=== PATIENT | female | born 1980 | race Caucasian/White ===

== ENCOUNTER 2017-01-16 15:48 | Observation (INO) | payer BC ==
[~2017-01-16] VITALS: Ht 170.2 cm; Wt 56.8 kg
[2017-01-16 16:09] VITALS: BP 118/75
[2017-01-16] MEDS: LACTATED RINGERS 1,000 ML IV SCH ×2 (16:30→16:31)
[2017-01-16] MEDS ORDERED: PRENATAL MULTIVITAMIN (16:31)
[2017-01-16] MEDS ORDERED: ALBUTEROL INH (16:31)
[2017-01-16 16:33] VITALS: BP 118/75
[2017-01-16] MEDS ORDERED: MISOPROSTOL 200 MCG TABLET ONE (16:48)
[2017-01-16] MEDS ORDERED: BUPIVACAINE/PF-EPI 0.25% 1:200K ONE (16:48)
[2017-01-16] MEDS ORDERED: OXYTOCIN 10 UNITS/ML, 1ML ONE (16:48)
[2017-01-16] MEDS ORDERED: METHYLERGONOVINE 0.2 MG/ML IM ONE (16:49)
[2017-01-16] MEDS ORDERED: MIDAZOLAM 1 MG/ML, 2ML ONE (16:58)
[2017-01-16] MEDS ORDERED: FENTANYL PF 100 MCG/2ML ONE ×2 (16:58→18:06)
[2017-01-16] MEDS ORDERED: DEXAMETHASONE 4 MG/ML, 1ML ONE (17:22)
[2017-01-16] MEDS ORDERED: ONDANSETRON 2MG/ML, 2ML ONE (17:22)
[2017-01-16] MEDS ORDERED: CEFAZOLIN 1,000 MG ONE (17:22)
[2017-01-16] MEDS ORDERED: PROPOFOL 10 MG/ML, 20ML ONE (17:22)
[2017-01-16] MEDS ORDERED: EPHEDRINE 50 MG/ML, 1ML IVPush PRN (17:30)
[2017-01-16] MEDS ORDERED: PROMETHAZINE 25 MG/ML, 1ML IV PRN (17:30)
[2017-01-16] MEDS ORDERED: HYDROmorphone 1 MG/ML, 1ML IV PRN (17:30)
[2017-01-16] MEDS ORDERED: ALBUTEROL SULFATE 2.5 MG/3 ML NPPB PRN (17:30)
[2017-01-16] MEDS ORDERED: ONDANSETRON 2MG/ML, 2ML IVPush PRN (17:30)
[2017-01-16] MEDS ORDERED: OXYcodone 5 MG/5 ML ORAL.SOL UDC PO PRN (17:30)
[2017-01-16] MEDS ORDERED: ACETAMINOPHEN 325 MG TABLET PO PRN (17:30)
[2017-01-16] MEDS ORDERED: BUPIVACAINE/PF-EPI 0.25% 1:200K IM ONE (17:38)
[2017-01-16] MEDS ORDERED: ACETAMINOPHEN 650 MG/20.3 ML UDC ONE (18:06)
[2017-01-16] MEDS ORDERED: OXYcodone 5 MG/5 ML ORAL.SOL UDC ONE (18:06)
[2017-01-16] MEDS: FENTANYL PF 100 MCG/2ML IV PRN ×2 (18:13→18:20)
[2017-01-16] MEDS ORDERED: IBUPROFEN 600 MG TABLET PO PRN (19:30)
[2017-01-16] MEDS ORDERED: morphine SULFATE 10 MG/ML, 1ML IV PRN (19:30)
[2017-01-16] MEDS ORDERED: OXYcodone/APAP 5/325MG TABLET PO PRN (19:30)
[2017-01-16] MEDS ORDERED: LACTATED RINGERS 1,000 ML IV SCH ×2 (19:30)
[2017-01-16] MEDS ORDERED: OXYC-302 PO (19:49)
== END 2017-01-16 20:15 | disposition home or self-care (01) ==
LOC: OR 15:48 → 4NOR 19:06 → OR 19:08 → 4NOR 19:08
PROVIDERS: ADMIT Obstetrics & Gynecology; ATTEND Obstetrics & Gynecology
DX: O02.1 Missed abortion (principal); O36.4XX0 Maternal care for intrauterine death, not applicable or unspecified; Z37.1 Single stillbirth; J45.909 Unspecified asthma, uncomplicated
CPT/HCPCS: 36415; 59820; 86850; 86900; 88305; G0378; J0690; J1100; J2210; J2250; J2405; J2704; J3010; J7120; J2590